=== PATIENT | male | born 1950 | race Caucasian/White ===

== ENCOUNTER → 2018-06-01 07:26 | Outpatient (CLI) | payer MEDICARE, BC ==
[2015-03-23 10:06] VITALS: BMI 22.2
[~2018-06-01 07:26] MED LIST: BACTROBAN 22 GM22 GM TOPICAL; BAYER CHEWABLE81 MG PO; HUMALOG 30100 UNITS/; HYDRALAZINE HCL50 MG PO; HYDROCODON-ACE1 EAC7 PO; ISOSORBIDE DINI20 MG PO; LIPITOR80 MG PO; LISINOPRIL2.5 MG PO; MYFORTIC180 MG PO; NORVASC10 MG PO; PHOSLO667 MG PO; PLAVIX75 MG PO; PREDNISONE10 MG PO; PRILOSEC20 MG PO; TACROLIMUS ANHYD1 MG PO; TOPROL XL100 MG PO
== END | disposition home or self-care (01) ==
LOC: D.US 07:26
PROVIDERS: ATTEND Internal Medicine Nephrology
DX: Z86.19 Personal history of other infectious and parasitic diseases (principal); R18.8 Other ascites